=== PATIENT | male | born 1930 | race Caucasian/White ===

== ENCOUNTER 2017-05-04 05:44 | Emergency (ER) | payer MEDICARE, OTHER ==
[~2017-05-04] VITALS: Ht 177.8 cm; Wt 64.4 kg
[2017-05-04] MEDS ORDERED: BAYER CHEWABLE81 MG PO (05:55)
[2017-05-04] MEDS ORDERED: TYLENOL325 MG PO (05:55)
[2017-05-04] MEDS ORDERED: COZAAR25 MG PO (05:56)
[2017-05-04] MEDS ORDERED: PROSCAR5 MG PO (05:56)
[2017-05-04] MEDS ORDERED: GLUCOPHAGE500 MG PO (05:57)
[2017-05-04] MEDS ORDERED: AMIODARONE HCL200 MG PO (05:57)
[2017-05-04] MEDS ORDERED: CRESTOR20 MG PO (05:58)
[2017-05-04] MEDS ORDERED: OMEPRAZOLE20 MG PO (05:58)
[2017-05-04] MEDS ORDERED: ELIQUIS5 MG PO (05:58)
[2017-05-04] MEDS ORDERED: STOOL SOFTENER100 MG PO (05:59)
[2017-05-04] MEDS ORDERED: VITAMIN D31000 UNIT PO (06:00)
[2017-05-04] MEDS ORDERED: SUPER B COMPLE150 MG PO (06:03)
[2017-05-04] MEDS ORDERED: IRON160 MG PO (06:04)
[2017-05-04] MEDS ORDERED: FISH OIL DR 1,1 EAC1 PO (06:04)
[2017-05-04] MEDS ORDERED: MACROBID 100 M100 MG PO (07:04)
== END 2017-05-04 07:15 | disposition home or self-care (01) ==
LOC: ED 05:44
DX: N39.0 Urinary tract infection, site not specified (principal); I48.91 Unspecified atrial fibrillation; I10 Essential (primary) hypertension; E11.9 Type 2 diabetes mellitus without complications; Z88.8 Allergy status to other drugs, medicaments and biological substances; Z91.018 Allergy to other foods; Z79.82 Long term (current) use of aspirin; Z79.899 Other long term (current) drug therapy; Z79.84 Long term (current) use of oral hypoglycemic drugs
CPT/HCPCS: 80053; 81001; 85025; 85610; 85730; 87077; 87088; 87186; 99283